=== PATIENT | male | born 1990 | race Caucasian/White ===

== ENCOUNTER 2018-01-07 09:52 | Emergency (ER) | payer OTHER ==
[2018-01-07 09:56] VITALS: BP 150/75; PULSE 53; RESP 16; TEMP 97.7; O2SAT 98
[2018-01-07] MEDS ORDERED: FLUORESCEIN SODIUM 1 MG STRIP OP ONE (10:01)
[2018-01-07] MEDS ORDERED: PROPARACAINE 0.5% 15 ML OPHT DROP ONE (10:01)
--- NOTE | 2018-01-07 10:11 | EDPHY ---
H & P Stated Complaint: FOE in R eye since this am;has contacts Time Seen by Provider: 01/07/18 10:11 HPI/ROS: CHIEF COMPLAINT: Foreign body sensation right eye HISTORY OF PRESENT ILLNESS: The patient presents to the ED with a 1 day history of a foreign body sensation to his right eye. 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 He developed some mild discomfort in the eye yesterday which became progressively worse today. The patient denies significant visual acuity changes or discharge. He has no additional acute complaints. REVIEW OF SYSTEMS: A comprehensive 10 point review of systems is otherwise negative aside from elements mentioned in the history of present illness. Source: Patient Exam Limitations: No limitations - Personal History Current Tetanus Diphtheria and Acellular Pertussis (TDAP): Yes - Medical/Surgical History Other PMH: healthy - Social History Smoking Status: Current some day smoker - Physical Exam Exam: Visual Acuity: noted from Nurse's notes. Pupils: equal round and reactive to light EOMI Skin: no proptosis, no periorbital erythema or swelling, no vesicles Conjunctivae: Conjunctiva injected in the right eye, tearing, no purulent discharge, no obvious foreign body Cornea: exam with fluorescein shows area of corneal abrasion and irritation noted in the inferior lateral portion of the cornea. No obvious rust ring Anterior chamber: normal, no hyphema or hypopyon Constitutional: Initial Vital Signs Temperature (C) 36.5 C 01/07/18 09:53 Heart Rate 53 L 01/07/18 09:53 Respiratory Rate 16 01/07/18 09:53 Blood Pressure 150/75 H 01/07/18 09:53 O2 Sat (%) 98 01/07/18 09:53 O2 Delivery Mode Room Air Allergies/Adverse Reactions: No Known Allergies Allergy (Unverified 01/07/18 09:56) Home Medications: Medication Instructions Recorded NK [No Known Home Meds] 01/07/18 Medical Decision Making ED Course/Re-evaluation: The patient presents to the ED for evaluation of right eye discomfort. He does were contact lenses. I see no obvious foreign body on exam. He does have some area of corneal irritation and a slight abrasion noted to the inferior aspect of the cornea. He had complete relief with topical Ophthetic. The patient will be advised not to wear his contact lenses until cleared to do so by his media manager. He is scheduled to see her this afternoon at 3:00 p.m.. The patient will be discharged home with a prescription for Ocuflox eyedrops. He is instructed to use 1 drop 5 times a day to the right eye. Differential Diagnosis: Differential diagnosis considered includes corneal abrasion, corneal ulcer, conjunctival foreign body Departure - Departure Disposition: Home, Routine, Self-Care Clinical Impression: Corneal abrasion Qualifiers: Encounter type: initial encounter Laterality: right Qualified Code(s): S05.01XA - Injury of conjunctiva and corneal abrasion without foreign body, right eye, initial encounter Condition: Good Instructions: Corneal Abrasion (ED) Additional Instructions: 1. Please follow up today as scheduled with your media manager. 2. Please use antibiotic eye drop, 1 eye drop to right eye 5 times a day for next 7 days. 3. No contact lenses to right eye until directed to do so by your media manager.
[2018-01-07] MEDS ORDERED: OFLOXACIN 0.3% SOLN PREPACK OPHT.BTL TAKEHOME ONE (10:26)
== END 2018-01-07 10:33 | disposition home or self-care (01) ==
DX: S05.01XA Injury of conjunctiva and corneal abrasion without foreign body, right eye, initial encounter (principal); F17.200 Nicotine dependence, unspecified, uncomplicated; X58.XXXA Exposure to other specified factors, initial encounter